=== PATIENT | female | born 2005 | race Caucasian/White ===

== ENCOUNTER 2023-12-18 17:44 | Emergency (ER) | payer BC, SELFPAY ==
--- NOTE | 2023-12-18 18:02 | ED.GENADULT ---
HPI - General Adult General Chief complaint: Upper Respiratory Infection Stated complaint: sob and wheezing Time Seen by Provider: 12/18/23 18:02 Source: patient Mode of arrival: ambulatory Limitations: no limitations History of Present Illness HPI narrative: 18-year-old female patient presents to the [facility] with complaints of cough and shortness of breath that started yesterday. Patient states she does have history of asthma but does not currently have an inhaler. Patient states that she does take Singulair for allergies. Denies fevers, body aches or chills. Patient states she has had some recent congestion and drainage. Denies any headaches, abdominal pain, nausea, vomiting or diarrhea. Patient denies taking anything prior to arrival for her cough Related Data Home Medications Medication Instructions Recorded Confirmed L norgest/E estradiol-E estrad 1 tablet PO DAILY 12/18/23 12/18/23 0.15 mg-30 mcg (84)/10 mcg(7) tabs,3mos ([place]) buspirone 7.5 mg tablet 15 mg PO DAILY 12/18/23 12/18/23 escitalopram oxalate 20 mg tablet 20 mg PO DAILY 12/18/23 12/18/23 montelukast 10 mg tablet 10 mg PO HS 12/18/23 12/18/23 Allergies Allergy/AdvReac Type Severity Reaction Status Date / Time No Known Allergies Allergy Verified 12/18/23 18:12 Review of Systems Review of Systems: CONSTITUTIONAL: Denies fever, chills, or sweats. EYES: Denies visual changes, redness, or discharge. ENT: Denies rhinorrhea, congestion, sore throat, or otalgia. CARDIOVASCULAR: Denies chest pain, palpitations, or edema. RESPIRATORY: positive cough with dyspnea. GASTROINTESTINAL: Denies abdominal pain, nausea, vomiting, or diarrhea. GENITOURINARY: Denies dysuria or hematuria. SKIN: Denies rash or itching. MUSCULOSKELETAL: Denies back pain, joint pain, or myalgia. NEUROLOGIC: Denies headache, numbness, or weakness. PSYCHIATRIC: Denies anxiety or depression. [facility] Past Medical History Medical History (Updated 12/18/23 @ 18:56 by ALICIA Garibay) Asthma No significant past medical history Comments At the time of my signature I agree with nursing past medical history, surgical, social, and family history. There is no relevant family history pertinent to the presenting complaint. Exam Narrative: GENERAL: Well-appearing, well-nourished, and in no acute distress. HEAD: Normocephalic, atraumatic. EYES: PERRLA and EOMI. ENT: Nares clear, no rhinorrhea or epistaxis. Mucous membranes moist. NECK: Supple. No lymphadenopathy CHEST: patient has inspiratory and expiratory wheezing noted to bilateral upper lower lobes on auscultation. No respiratory distress. patient able to talk in clear complete sentences and no tripoding noted. HEART: Regular rate and rhythm. No murmur heard. Normal peripheral pulses. ABDOMEN: Soft, nontender, nondistended, normal active bowel sounds. EXTREMITIES: Normal range of motion. No edema. SKIN: Warm, dry, no rash. NEURO: No focal deficits. Alert and oriented x3. Course Course Level of Care: Express Care Visit Reevaluation(s) Reevaluation #1: re-evaluated patient after breathing treatment. Patient states she is feeling a better since the treatment. Patient states it did make her cough more. Patient continues to have inspiratory wheezing noted to bilateral upper and lower lobes the expiratory wheezing has improved significantly. Will discharge home with albuterol inhaler and course of steroids for asthma exacerbation. Date: 12/18/23 Time: 18:58 Vital Signs Vital signs: Vital Signs Temperature 36.7 C 12/18/23 18:04 Pulse Rate 92 12/18/23 18:04 Respiratory Rate 18 12/18/23 18:04 Blood Pressure 141/81 H 12/18/23 18:04 Pulse Oximetry 96 12/18/23 18:04 Oxygen Delivery Room Air 12/18/23 18:04 Temperature 36.7 C 12/18/23 18:04 Pulse Rate 92 12/18/23 18:40 Respiratory Rate 18 12/18/23 18:40 Blood Pressure 141/81 H 12/18/23 18:04 Pulse Oximetry 96
[2023-12-18 18:04] VITALS: BP 141/81; PULSE 92; RESP 18; TEMP 36.7; O2SAT 96
[2023-12-18] MEDS: IPRATROPIUM 0.5 MG/ALBUTEROL SULFATE 2.5 MG AMPUL.NEB 3 ML INHALATION (18:37)
[2023-12-18 18:40] VITALS: PULSE 92; RESP 18; O2SAT 96
[2023-12-18 18:55] VITALS: PULSE 88; RESP 20; O2SAT 97
== END 2023-12-18 18:58 | disposition home or self-care (01) ==
PROVIDERS: Emergency Provider Nurse Practitioner Family; PCP Nurse Practitioner
DX: J45.901 Unspecified asthma with (acute) exacerbation (principal); Z20.822 Contact with and (suspected) exposure to COVID-19
CPT/HCPCS: 87426; 94640; 99203; G0463